=== PATIENT | male | born 1970 | race Asian ===

== ENCOUNTER 2020-01-16 10:41 | Emergency (ER) | payer BC ==
[2020-01-16 10:45] VITALS: BP 124/92; PULSE 89; TEMP 98.8
== END 2020-01-16 10:57 | disposition home or self-care (01) ==
LOC: JER 10:41
DX: R50.9 Fever, unspecified (principal); R05 Cough; M79.10 Myalgia, unspecified site; Z20.828 Contact with and (suspected) exposure to other viral communicable diseases
CPT/HCPCS: 99282-25; U0002